=== PATIENT | male | born 1980 | race African-American/Black ===

== ENCOUNTER 2017-05-14 21:13 | Inpatient (IN) | payer BC ==
[~2017-05-14] VITALS: Ht 185.4 cm; Wt 87.5 kg
--- NOTE | ~2017-05-14 | H ---
[facility] [place] [address] HISTORY AND PHYSICAL Name: CALIXTO RAMSAY Room #: 441-P [facility] IN .R.#: [id number] Admission: 05/14/17 Attend Phys: Rosalio Poon MD Discharge: Date of : 78 Report #: [id number] THIS REPORT FOR: //name// CC: Paul Soto DATE OF SERVICE: 05/14/2017 SURGEON: Elie Soto MD. PREOPERATIVE DIAGNOSES: 1. Left peritonsillar abscess. 2. Dysphagia. 3. Acute on chronic tonsillitis. HISTORY OF PRESENT ILLNESS: The patient is a 37-year-old gentleman presenting to the Emergency Department late last evening with complaints of escalating unilateral sore throat on the left. He began to feel ill last and eventually developed chills as well as pain on the left side of the neck radiating to his left ear, has a referred otalgia. He did report to a walk-in Emergency care clinic last Sunday and was given amoxicillin and prednisone. He reported that he did take the medications, but despite this, the symptoms worsened. He presented with dysphagia, especially for solids and was found to have an obvious peritonsillar abscess, confirmed by CT, showing a 3 cm mass. The patient was admitted, treated with IV antibiotics and steroids in anticipation of visit to the operating room for incision and drainage. PAST MEDICAL HISTORY: Otherwise, unremarkable. PAST SURGICAL HISTORY: Back surgery. MEDICATIONS: On admission include ciprofloxacin 500 mg b.i.d. and cyclobenzaprine. ALLERGIES: None. SOCIAL HISTORY: He is , he has a supportive family and does use marijuana occasionally. He is a former smoker, smoking 1 pack a week for 7 years, quit about a year ago. He does use alcohol weekly for mixed drinks on weekends. REVIEW OF SYSTEMS: Include dysphagia associated with sore throat and remaining 12-point review of systems unremarkable. [address] [address] HISTORY AND PHYSICAL Name: CALIXTO RAMSAY Room #: 441-P [facility] IN [facility]#: [id number] Admission: 05/14/17 Attend Phys: Rosalio Poon MD Discharge: Date of : 78 Report #: [id number] PHYSICAL EXAMINATION: GENERAL: Well-developed 37-year-old gentleman, seen with his . VITAL SIGNS: This morning show a temperature of 98.4 with a T-max of 98.4, blood pressure 114/56, heart rate of 81, respiration of 20, 100% on room air. HEENT: Normocephalic. Pupils equal, round, reactive to light. NEUROLOGIC: Normal tympanic membrane. Nasal exam is, deviated septum to the left, nonobstructing oral cavity, obvious left peritonsillar abscess shifting the uvula past midline with bulging of the anterior tonsillar pillar. This is erythematous with associated acute tonsillitis without exudate. NECK: Shows bilateral level 2 jugulodigastric adenopathy. Trachea is midline with normal crepitance. NEUROLOGIC: Cranial nerves 2-12 intact. Motor and sensory and cerebellar exams, normal. The CT of neck was reviewed personally by myself and available in the operating room showing a 3 cm left peritonsillar abscess. The patient's CBC showed a white count of 13,900 with a hemoglobin of 15.8. Metabolic panel was normal with the exception of a slightly low SGPT of 21 and a high total protein of 8.5. ASSESSMENT: 1. A 3 cm left peritonsillar abscess. 2. Acute on chronic tonsillitis. PLAN: I have discussed the planned procedure of the incision and drainage, left peritonsillar abscess with bilateral Ozyz tonsillectomy with the patient and his , I have reviewed the procedure, indications, alternatives, benefits, and potential risks at length and discussed pros and cons of each approach. They understand and desired to proceed with tonsillectomy, understanding that there is a slight risk of bleeding 5-10 days after the procedure, this has been reviewed with them and would recommend switching to clindamycin 300 mg q.i.d. p.o. as well as Percocet 7.5/325 one to two q. 4-6 hours p.r.n. I see no reason why the patient cannot be discharged from the hospital later this afternoon to the care of his supportive family. I will plan to follow up with him in 2 weeks in the office. Written and verbal discharge instructions and emergency precautions have been provided through my nurse from the office. <ELECTRONICALLY SIGNED> By: Elie Soto MD 05/16/17 1417 1310 1414 Elie Soto MD /nt
--- NOTE | ~2017-05-14 | O ---
[facility] [place] [address] OPERATIVE REPORT Name: CALIXTO RAMSAY Room #: 441-P [facility] IN .R.#: [id number] Admission: 05/14/17 Attend Phys: Rosalio Poon MD Discharge: Date of : 78 Report #: [id number] THIS REPORT FOR: //name// CC: Paul Soto DATE OF SERVICE: 05/15/2017 SURGEON: Elie Soto MD. PREOPERATIVE DIAGNOSES: 1. Left peritonsillar abscess. 2. Acute on chronic tonsillitis. POSTOPERATIVE DIAGNOSES: 1. Left peritonsillar abscess. 2. Acute on chronic tonsillitis. OPERATION PERFORMED: 1. Bilateral quinsy tonsillectomy. 2. Incision and drainage, left peritonsillar abscess. INDICATIONS: The patient is a 37-year-old gentleman presenting through the Emergency Department late last night with a progressive sore throat, dysphagia and referred otalgia. He had been sick beginning on . The patient was noted to have an obvious peritonsillar abscess confirmed on CT. He was admitted for IV antibiotics and steroids and brought to surgery this morning for incision and drainage. DESCRIPTION OF PROCEDURE: The patient was brought to the operating room and placed supine on the operating table. After adequate general anesthesia was achieved via endotracheal intubation, he was turned 90 degrees. Shoulder roll was placed, neck was extended. He was prepped and draped for surgery. McIvor mouth gag was introduced. Tongue was retracted and the patient suspended from the [employer] stand. Soft palate showed obvious abscess with bulging on the left. Right tonsil was grasped in the midline, excised with Bovie cautery. Left tonsil was removed in similar fashion. Upon entrance to the left tonsil about mid pole, there was a large abscess cavity encountered with a dishwater mucopurulence. This was cultured for aerobe and anaerobe. Tonsil was completely removed and hemostasis was assured with suction cauterization. The palate was then retracted with a soft catheter. Nasopharynx exam revealed no evidence of any extension into the nasopharynx or adenoid tissue. The soft catheter was [facility] [address] [place] [address] OPERATIVE REPORT Name: CALIXTO RAMSAY Room #: 441-P [facility] IN [facility].#: [id number] Admission: 05/14/17 Attend Phys: Rosalio Poon MD Discharge: Date of : 78 Report #: [id number] then removed. Nose, nasopharynx, oral cavity were then irrigated. Once hemostasis was assured, he was returned to anesthesia, awake without difficulty and returned to recovery in good condition. Sponge and needle counts were correct. There were no complications and the blood loss was about 20 mL. He will be watched until awake and stable, presuming he does well and discharged to home with plans to follow up with me in 2 weeks. Written and verbal discharge instructions and emergency precautions have been given to his family. DISCHARGE MEDICATIONS: Include clindamycin 300 mg t.i.d. for 10 days, Percocet 7.5/325 one to two q. 4-6 hours p.r.n., Phenergan suppository 25 mg 1 per rectum q. 4-6 hours p.r.n. He is instructed on light activity and a soft diet. He will follow up with me in 2 weeks. <ELECTRONICALLY SIGNED> By: Elie Soto MD 05/16/17 1416 1250 1321 Elie Soto MD /nt
--- NOTE | ~2017-05-14 | S ---
[facility] [place] [address] SURGICAL PATH RPT PROCEDURE Name: CALIXTO HANSEN Room #: 441-P [facility] IN M.R.#: [id number] Admission: 05/14/17 Date of : 78 Discharge: 05/16/17 Report #: [id number] Path Case #: [id number] PATHOLOGY REPORT COLLECTION DATE: 05/15/2017 RECEIVED DATE: 05/15/2017 SUBMITTING PHYS: Dr. Elie Soto OTHER PHYS: Dr. Rosalio Schuler SPECIMEN(S) RECEIVED: A.Tonsils * * * * * * * * * * * * FINAL DIAGNOSIS: Tonsils, right and left bilateral tonsillectomy: - Two tonsils with follicular hyperplasia. (SKM:; 05/17/2017) PATHOLOGIST: True Nguyen M.D. REPORT ELECTRONICALLY SIGNED BY: True Nguyen M.D. DATE/TIME: 05/17/2017 13:26 * * * * * * * * * * * * GROSS PATHOLOGY: Received in formalin, labeled "Calixto Hansen, tonsils," are two tonsils measuring 3.2 x 2.1 x 1.2 cm and 2.9 x 1.8 x 1.1 cm in maximum dimensions. The mucosal surfaces are vidales with the typical crypts identified. Sectioning reveals lobulated, homogeneous light vidales cut surfaces with no grossly identifiable lesions. Trip Follower sections from each tonsil are submitted in cassette A1. (ESEQUIEL; 05/16/2017) CLINICAL HISTORY: peritonsillar abscess, tonsillectomy INITIAL CPT CODE(S): A; 76917 Professional services performed by [facility] at [facility] [address], [place] [address] Technical services performed by [facility] at [address] [place] [address], [address] [address]. [facility] [address] [place] [address] SURGICAL PATH RPT PROCEDURE Name: CALIXTO HANSEN Room #: 441-P [facility] IN [facility].#: [id number] Admission: 05/14/17 Date of : 78 Discharge: 05/16/17 Report #: [id number] Path Case #: [id number] [facility] [address] [address] PHONE: [phone] DIRECTOR: Lit Sotelo M.D. * * * END OF REPORT * * *
[~2017-05-14 21:13] MED LIST: CIPROFLOXACIN500 M1 PO; FLEXERIL PO; TRAMADOL 50 MG50 MG PO
[2017-05-14 21:19] VITALS: BP 133/88
[2017-05-14 22:27] LABS: ABSOLUTE NEUTROPHILS 10.6 thou/uL (1.4-8.2); BASOPHILS 0.4 % (0.0-2.0); EOSINOPHILS 0.1 % (0.0-3.0); HEMOGLOBIN 15.8 gm/dL (14.0-18.0); LYMPHOCYTES 14.4 % (24.0-44.0); MCH 29.8 pg (26.0-34.0); MCHC 33.6 g/dL (28.0-37.0); MCV 88.8 fL (80.0-100.0); MONOCYTES 8.9 % (1.0-8.0); PLATELET COUNT 192 thou/uL (150-400); POLYS 76.2 % (36.0-66.0); RDW 14.1 % (10.5-14.5); WBC 13.9 thou/uL (4.0-11.0)
[2017-05-14 22:32] LABS: MANUAL DIFF NO
[2017-05-14 22:42] LABS: CALCIUM 9.3 mg/dL (8.5-10.1); CREATININE 1.3 mg/dL (0.7-1.3)
[2017-05-14 22:46] LABS: ALBUMIN 4.1 g/dL (3.4-5.0); TOTAL PROTEIN 8.5 g/dL (6.4-8.2)
[2017-05-15 00:17] VITALS: BP 138/80
[2017-05-15 00:51] VITALS: BP 140/75
[2017-05-15] MEDS ORDERED: AUGMENTIN 875875 MG PO (01:27)
[2017-05-15] MEDS ORDERED: PREDNISONE 10 M10 MG PO (01:28)
[2017-05-15] MEDS ORDERED: IBUPROFEN 800800 M1 PO (01:29)
[2017-05-15] MEDS ORDERED: APAP500 PO (01:30)
[2017-05-15 05:53] VITALS: BP 133/67
[2017-05-15 08:42] VITALS: BP 114/56
[2017-05-15] MEDS ORDERED: PROMS25 WY RECTAL (12:58)
[2017-05-15] MEDS ORDERED: CLEOCIN HCL150 MG PO (12:59)
[2017-05-15] MEDS ORDERED: PERCOCET 5-3251 EACH PO (13:00)
[2017-05-15 16:00] VITALS: BP 118/68
[2017-05-15 19:44] VITALS: BP 138/80
[2017-05-16 03:55] VITALS: BP 128/77
[2017-05-16 06:30] LABS: ABSOLUTE NEUTROPHILS 9.6 thou/uL (1.4-8.2); BASOPHILS 0.2 % (0.0-2.0); HEMATOCRIT 42.5 % (42.0-52.0); HEMOGLOBIN 14.2 gm/dL (14.0-18.0); LYMPHOCYTES 13.8 % (24.0-44.0); MCH 29.6 pg (26.0-34.0); MCHC 33.4 g/dL (28.0-37.0); MCV 88.6 fL (80.0-100.0); MONOCYTES 9.6 % (1.0-8.0); PLATELET COUNT 200 thou/uL (150-400); POLYS 76.4 % (36.0-66.0); WBC 12.6 thou/uL (4.0-11.0)
[2017-05-16 06:43] LABS: MANUAL DIFF NO
[2017-05-16 07:11] LABS: CALCIUM 9.1 mg/dL (8.5-10.1); CREATININE 1.1 mg/dL (0.7-1.3); POTASSIUM 4.2 mmol/L (3.5-5.1)
[2017-05-16 07:41] VITALS: BP 142/74
[2017-05-16 12:57] VITALS: BP 142/74
== END 2017-05-16 14:26 | disposition home or self-care (01) | DRG 133 ==
LOC: ER 21:13 → EROBS 22:39 → 4S 22:39
PROVIDERS: Hospitalist; Nurse Practitioner; Physician Assistant
PROC: 0C9PXZX Drainage of Tonsils, External Approach, Diagnostic (ICD-10-PCS; principal; 2017-05-15)
PROC: 0CTPXZZ Resection of Tonsils, External Approach (ICD-10-PCS; principal; 2017-05-15)
DX: J03.90 Acute tonsillitis, unspecified (principal); J36 Peritonsillar abscess; R13.10 Dysphagia, unspecified; J35.01 Chronic tonsillitis; Z87.891 Personal history of nicotine dependence
CPT/HCPCS: 10100; 50010; 50101; 51609; 62110; 62900; 70005